=== PATIENT | male | born 1955 | race Hispanic/Latino ===

== ENCOUNTER 2018-11-03 17:36 | Emergency (ER) | payer MEDICARE, OTHER ==
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
[2018-11-03 18:41] VITALS: BP 166/101
--- NOTE | 2018-11-03 19:07 | XRay Report ---
PROCEDURE: XR HAND 3+V LT TECHNIQUE: 3 views left hand HISTORY: finger pain COMPARISONS: None FINDINGS: Global osteopenia. No fracture or dislocation. No radiopaque foreign body. The fingers appear to be martín tape #3 and 4. The region of injury is not demarcated. IMPRESSION: Third and fourth fingers are martín taped. No acute fracture or dislocation identified. Hyperextension avulsion injury could be missed because of the overlap on the lateral image. This document is electronically signed by Trina Reza MD., November 03 2018 07:05:44 PM ET
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
== END 2018-11-03 21:15 | disposition home or self-care (01) ==
LOC: ED 17:36
DX: L03.012 Cellulitis of left finger (principal); Z79.899 Other long term (current) drug therapy